=== PATIENT | female | born 1935 | race Caucasian/White ===

== ENCOUNTER 2017-07-07 09:37 | Inpatient (IN) | payer MEDICARE, BC ==
[~2017-07-07] VITALS: Ht 157.5 cm; Wt 74.8 kg
--- NOTE | 2017-07-07 09:50 | NUR ---
PT BIB FAMILY MEMBER FRO ABD PAIN WITH N/V/D X 1 WEEK. VSS. SEEN BY MD FOR EVAL. SAFETY AND COMFORT MEASURES PROVIDED. WILL MONITOR.
[2017-07-07] MEDS ORDERED: MORPHINE SULFATE INJ 2 MG/ML DISP.SYRIN ONE (09:51)
[2017-07-07] MEDS ORDERED: ONDANSETRON HCL/PF 4 MG/2 ML VIAL ONE (09:51)
[2017-07-07 10:00] LABS: BASOPHILS % (AUTO) 0.4 % (0.0-2.0); EOSINOPHILS # (AUTO) 0.9 /CMM (0.0-0.7); EOSINOPHILS % (AUTO) 8.7 % (0.0-6.0); HEMATOCRIT 47 % (33-45); HEMOGLOBIN 15.1 g/dL (11.5-14.8); LYMPHOCYTES # (AUTO) 2.5 /CMM (0.8-4.8); LYMPHOCYTES % (AUTO) 24.4 % (20.0-44.0); MEAN CORPUSCULAR HEMOGLOBIN 30 PG (26.0-33.0); MEAN CORPUSCULAR HGB CONC 33 g/dl (31.0-36.0); MEAN CORPUSCULAR VOLUME 93 fL (82-100); MONOCYTES # (AUTO) 0.5 /CMM (0.1-1.30); MONOCYTES % (AUTO) 5.3 % (2.0-12.0); NEUTROPHILS # (AUTO) 6.3 /CMM (1.8-8.9); NEUTROPHILS % (AUTO) 61.2 % (43.0-81.0); PLATELET COUNT (AUTO) 276 /CMM (150-450); RED BLOOD CELL COUNT(AUTO) 5.01 MIL/uL (4.0-5.2); WHITE BLOOD COUNT (AUTO) 10.2 K/uL (4.3-11.0)
[2017-07-07] MEDS ORDERED: IV NS 0.9% 500 ML BAG IV ONE (10:00)
[2017-07-07] MEDS ORDERED: ONDANSETRON HCL/PF 4 MG/2 ML VIAL IVP ONE (10:00)
[2017-07-07] MEDS ORDERED: MORPHINE SULFATE INJ 2 MG/ML DISP.SYRIN IV ONE (10:00)
--- NOTE | 2017-07-07 10:00 | NUR ---
IV ACCESS STARTED. BLOOD DRAWN FOR LABS. PT MEDICATED ORDERED.
--- NOTE | 2017-07-07 10:07 | NUR ---
PT TAKEN TO CT.
[2017-07-07 10:11] LABS: CALCIUM, SERUM 9.2 mg/dL (8.5-10.1); CARBON DIOXIDE 29 mmol/L (21-32); CHLORIDE 103 mmol/L (98-107); CREATININE 1.1 mg/dL (0.6-1.3); GLUCOSE 131 mg/dL (74-106); POTASSIUM 4.4 mmol/L (3.5-5.1); SODIUM SERUM 139 mmol/L (136-145); UREA NITROGEN, BLOOD 26 mg/dL (7-18)
[2017-07-07 10:23] LABS: ALANINE AMINOTRANSFERASE 24 U/L (12-78); ALBUMIN 4.3 g/dL (3.4-5.0); ALKALINE PHOSPHATASE 82 U/L (46-116); ASPARTATE AMINOTRANSFERASE 19 U/L (15-37); BILIRUBIN,DIRECT 0.1 mg/dL (0.0-0.2); BILIRUBIN,TOTAL 0.3 mg/dL (0.2-1.0); LIPASE 186 U/L (73-393); TOTAL PROTEIN, SERUM 7.6 g/dL (6.4-8.2)
[2017-07-07 10:37] LABS: APPEARANCE,URINE Slightly Cloudy (CLEAR); BILIRUBIN,URINE Negative (NEGATIVE); BLOOD, URINE Negative Ery/uL (NEGATIVE); COLOR,URINE Yellow (YELLOW); KETONES,URINE Negative (NEGATIVE); LEUKOCYTE ESTERASE ,URINE Small (NEGATIVE); NITRITE, URINE Positive (NEGATIVE); PROTEIN,URINE Trace mg/dl (NEGATIVE); UGLUCOSE Negative (NEGATIVE); UROBILINOGEN,URINE 0.2 EU/dL (0.2)
[2017-07-07 10:44] LABS: BACTERIA,URINE Moderate /HPF (None Seen); RBC,URINE 0-3 /HPF (0-2); SQUAMOUS EPITHELIAL CELL,UR Few /HPF (None Seen); WBC,URINE 80-100 /HPF (0-3)
--- NOTE | 2017-07-07 11:03 | NUR ---
PAGED DR. BARRIENTOS FOR ADMISSION
[2017-07-07] MEDS ORDERED: METF500T4 PO (11:21)
[2017-07-07] MEDS ORDERED: LORA1TAB82 PO (11:21)
[2017-07-07] MEDS ORDERED: SIMV40TA5 PO (11:21)
[2017-07-07] MEDS ORDERED: DONE5TAB34 PO (11:21)
[2017-07-07] MEDS ORDERED: BENA20TA2 PO (11:21)
[2017-07-07] MEDS ORDERED: PANT40TA2 PO (11:21)
[2017-07-07] MEDS ORDERED: OXCA150T5 PO (11:21)
[2017-07-07] MEDS ORDERED: FLUO20CA36 PO (11:21)
[2017-07-07] MEDS ORDERED: Z GUARD REMEDY 2 OZ OINT TP PRN (11:30)
[2017-07-07] MEDS ORDERED: ZOLPIDEM TARTRATE 5 MG TABLET PO PRN (11:30)
[2017-07-07] MEDS ORDERED: ACETAMINOPHEN 325 MG TABLET PO PRN (11:30)
[2017-07-07] MEDS ORDERED: FLAGYL/NS RTU 500 MG/100 ML PIGGYBACK IV ONE (11:30)
[2017-07-07] MEDS ORDERED: HYDROCODONE/APAP 5/325MG 1 EACH TABLET PO PRN (11:30)
[2017-07-07] MEDS ORDERED: PIPERACILLIN /TAZOBACTAM 3.375 G in IV D5W 50 ML IV ONE (11:30)
[2017-07-07] MEDS ORDERED: PANTOPRAZOLE 40 MG VIAL IV SCH (11:30)
[2017-07-07] MEDS ORDERED: METRONIDAZOLE 500MG/ NS 100ML 100 ML IV ONE (11:32)
--- NOTE | 2017-07-07 11:55 | NUR ---
REPORT GIVEN TO KAY BONNER FOR MS ROOM 308
[2017-07-07 12:15] VITALS: BP 113/78
--- NOTE | 2017-07-07 12:15 | NUR ---
RN MS NOTES PATIENT ARRIVED ON A GURNEY, ABLE TO AMBULATE TO THE BED. PATIENT A/O X3, VERBALLY RESPONSIVE. NO APPARENT DISTRESS NOTED, DENIES SOB, DENIES PAIN. VITAL SIGNS STABLE, SKIN CLEAR AND INTACT. IV LINE ON RAC PATENT, ALL NEEDS MET, CALL LIGHT WITHIN REACH. PATIENT ORIENTED TO ROOM AND UNIT.
[2017-07-07] MEDS: IV D5/0.45 NACL 1,000 ML IV PRN (12:44)
[2017-07-07] MEDS ORDERED: PIPERACILLIN /TAZOBACTAM 4.5 G in IV D5W 50 ML IV SCH (13:00)
[2017-07-07] MEDS: FAMOTIDINE/PF INJ 20 MG/2 ML VIAL IV SCH ×2 (13:14→21:26)
[2017-07-07] MEDS: PIPERACILLIN /TAZOBACTAM 2.25 G in IV D5W 50 ML IV SCH ×2 (13:14→17:35)
--- NOTE | 2017-07-07 14:00 | NUR ---
RN MS NOTES RECEIVED NEW VERBAL ORDERS FROM DR BARRIENTOS. ALL ORDERS NOTED AND CARRIED OUT.
[2017-07-07] MEDS: MORPHINE SULFATE INJ 2 MG/ML DISP.SYRIN IV PRN (18:52)
--- NOTE | 2017-07-07 19:12 | NUR ---
RN MS CLOSING NOTES PATIENT IN BED,VERBALLY RESPONSIVE. NO APPARENT DISTRESS NOTED, DENIES PAIN, DENIES SOB. ALL DUE MEDS GIVEN, ALL NEEDS MET. WILL ENDORSE CARE TO PM SHIFT.
--- NOTE | 2017-07-07 19:30 | NUR ---
MS RN INITIAL NOTE RECEIVED PT AWAKE AND ALERT, ORIENTED X3, MORPHINE 1MG GIVEN AT 1852, PT REPORT THAT IT WAS EFFECTIVE, WHEN ASSESSING O2 SATS OXYGEN LEVEL WAS 89% ROOM AIR, PT PLACED ON 2LNC PER MD ORDER, O2 SATS ARE NOW 96%, PT IS CLEAN/DRY AND COMFORTABLE, COOPERATIVE WITH CARE, SAFETY MEASURES WILL BE IN PLACE AT ALL TIMES, NEEDS WILL BE ANTICIPATED AND ATTENDED TO PROMPTLY.
[2017-07-07 20:00] VITALS: BP 136/80
[2017-07-07 20:14] VITALS: BP 136/80
[2017-07-08] MEDS: MORPHINE SULFATE INJ 2 MG/ML DISP.SYRIN IV PRN ×3 (00:16→18:42)
[2017-07-08] MEDS: PIPERACILLIN /TAZOBACTAM 2.25 G in IV D5W 50 ML IV SCH ×5 (00:16→23:58)
[2017-07-08 06:37] LABS: BASOPHILS % (AUTO) 0.3 % (0.0-2.0); EOSINOPHILS # (AUTO) 0.4 /CMM (0.0-0.7); EOSINOPHILS % (AUTO) 4.2 % (0.0-6.0); HEMATOCRIT 42 % (33-45); LYMPHOCYTES # (AUTO) 1.8 /CMM (0.8-4.8); MEAN CORPUSCULAR HEMOGLOBIN 31 PG (26.0-33.0); MEAN CORPUSCULAR HGB CONC 33 g/dl (31.0-36.0); MEAN CORPUSCULAR VOLUME 94 fL (82-100); MONOCYTES # (AUTO) 0.3 /CMM (0.1-1.30); MONOCYTES % (AUTO) 3.5 % (2.0-12.0); PLATELET COUNT (AUTO) 250 /CMM (150-450); RDW COEFFICIENT OF VARIATION 14.4 (11.5-15.0); RED BLOOD CELL COUNT(AUTO) 4.52 MIL/uL (4.0-5.2); WHITE BLOOD COUNT (AUTO) 9.6 K/uL (4.3-11.0)
[2017-07-08 06:47] LABS: CHOLESTEROL 206 mg/dL (<200); HDL CHOLESTEROL 53 mg/dL (40-60); LDL 120 mg/dL (0-99); TRIGLYCERIDES 166 mg/dL (30-150)
[2017-07-08 06:52] LABS: ALANINE AMINOTRANSFERASE 26 U/L (12-78); ALBUMIN 3.8 g/dL (3.4-5.0); ALKALINE PHOSPHATASE 71 U/L (46-116); ASPARTATE AMINOTRANSFERASE 17 U/L (15-37); BILIRUBIN,TOTAL 0.3 mg/dL (0.2-1.0); CALCIUM, SERUM 8.4 mg/dL (8.5-10.1); CARBON DIOXIDE 30 mmol/L (21-32); CHLORIDE 105 mmol/L (98-107); CREATININE 0.9 mg/dL (0.6-1.3); GLUCOSE 149 mg/dL (74-106); PHOSPHORUS 3.8 mg/dL (2.5-4.9); POTASSIUM 4.1 mmol/L (3.5-5.1); SODIUM SERUM 140 mmol/L (136-145); TOTAL PROTEIN, SERUM 7.2 g/dL (6.4-8.2); UREA NITROGEN, BLOOD 18 mg/dL (7-18)
--- NOTE | 2017-07-08 07:41 | NUR ---
RN MS NOTES RECEIVED PATIENT IN BED, VERBALLY RESPONSIVE, IN NO APPARENT DISTRESS. PATIENT DENIES PAIN, DENIES SOB, ON 2L O2 VIA NC. RAC IV LINE PATENT, INFUSING D51/2 NS AT 75 ML/HR. ALL NEEDS MET, CALL LIGHT WITHIN REACH.
[2017-07-08 08:00] VITALS: BP 129/75
[2017-07-08] MEDS: IV D5/0.45 NACL 1,000 ML IV PRN (08:19)
[2017-07-08] MEDS: FAMOTIDINE/PF INJ 20 MG/2 ML VIAL IV SCH ×2 (08:19→21:05)
[2017-07-08] MEDS: ONDANSETRON HCL/PF 4 MG/2 ML VIAL IVP PRN ×2 (08:56→18:43)
--- NOTE | 2017-07-08 09:00 | NUR ---
HA MS NOTES PATIENT SEEN AND EXAMINED BY DR BARRIENTOS WITH NEW ORDERS FOR PSYCH CONSULT. ALL ORDERS NOTED AND CARRIED OUT.
--- NOTE | 2017-07-08 10:00 | NUR ---
FAXED PATIENTS' FACE SHEET TO [facility] FOR PSYCH CONSULT.
--- NOTE | 2017-07-08 12:43 | NUR ---
RN MS NOTES DR MONREAL AWARE ON PSYCH CONSULT.WILL SEE PATIENT TOMORROW.
[2017-07-08 16:08] VITALS: BP 129/71
--- NOTE | 2017-07-08 19:06 | NUR ---
RN MS CLOSING NOTES PATIENT IN BED, VERBALLY RESPONSIVE, NO APPARENT DISTRESS NOTED. PATIENT ARUN SOB DENIES PAIN AT THIS TIME. ALL DUE MEDS GIVEN, ALL NEEDS MET. IV LINE ON RAC PATENT, FLUIDS RUNNING. WILL ENDORSE ARE TO PM SHIFT.
--- NOTE | 2017-07-08 19:15 | NUR ---
RN NOTES RECEIVED PT AWAKE, NO SOB, NOT IN DISTRESS, ON 2LPM O2 VIA NC AND TOLERATED WELL. PT ALERT AND ORIENTED X3, DENIES PAIN, NAUSEA AND VOMITING AT THIS TIME. IV ACCESS ON RIGHT AC PATENT AND INTACT WITH ONGOING IVF INFUSING WELL. ASSISTED TO THE BATHROOM, NOTED WITH STEADY GAIT. KEPT COMFORTABLE AND ATTENDED. SAFETY MEASURES IN PLACED. WILL CONTINUE TO MONITOR PT.
[2017-07-08 20:09] VITALS: BP 115/53
[2017-07-08 22:00] VITALS: BP 115/53
[2017-07-09] MEDS: MORPHINE SULFATE INJ 2 MG/ML DISP.SYRIN IV PRN (00:08)
[2017-07-09] MEDS: ONDANSETRON HCL/PF 4 MG/2 ML VIAL IVP PRN (00:10)
--- NOTE | 2017-07-09 00:10 | NUR ---
RN NOTES PT COMPLAINS OF ABDOMINAL PAIN 8/10 AND FEELS NAUSEATED, MORPHINE 1MG AND ZOFRAN 4 MG GIVEN IV. WILL CONTINUE TO MONITOR PT.
[2017-07-09] MEDS: PIPERACILLIN /TAZOBACTAM 2.25 G in IV D5W 50 ML IV SCH ×4 (05:35→23:59)
[2017-07-09] MEDS: IV D5/0.45 NACL 1,000 ML IV PRN (05:38)
--- NOTE | 2017-07-09 07:37 | NUR ---
RN NOTES PT ASLEEP, BREATHING REGULAR AND UNLABORED, NO SOB, NOT IN DISTRESS ON 2LPM O2 VIA NC AND TOLERATED WELL. VITAL SIGNS STABLE, AFEBRILE. NO EPISODE OF NAUSEA AND VOMITING. KEPT PAIN AT TOLERABLE LEVEL. ALL NEEDS ATTENDED. NO SIGNIFICANT CHANGE IN PT CONDITION NOTED. ENDORSED TO MORNING RN FOR CONTINUITY OF CARE.
--- NOTE | 2017-07-09 07:45 | NUR ---
RN MS NOTES PT IN BED, ASLEEP, EASILY AROUSABLE BY VERBAL STIMULI, DENIES PAIN OR ANY DISCOMFORT, IV FLUIDS INFUSING WELL, CALL LIGHT WITHIN REACH, ASSISTED WITH MEALS, NEEDS ATTENDED.
[2017-07-09 08:00] VITALS: BP 121/73
[2017-07-09] MEDS: FAMOTIDINE/PF INJ 20 MG/2 ML VIAL IV SCH ×2 (09:19→21:09)
[2017-07-09] MEDS ORDERED: LEVO75TA7 PO (11:36)
--- NOTE | 2017-07-09 12:30 | NUR ---
RN MS NOTES PT IN BED, AWAKE, ALERT AND ORIENTED, NO COMPLAINT OF PAIN, NOT IN DISTRESS, PT SEEN BY DR. BARRIENTOS, PER MD HE WILL CHECK PT'S LIST OF HOME MEDS, RECEIVED ORDER TO UPGRADE PT'S DIET, NOTED AND CARRIED OUT.
[2017-07-09 16:00] VITALS: BP 134/85
--- NOTE | 2017-07-09 18:19 | NUR ---
RN MS NOTES PT IN BED, RESTING, DENIES PAIN OR ANY DISCOMFORT, TOLERATING CURRENT DIET WELL, IV FLUIDS INFUSING WELL, CALL LIGHT WITHIN REACH, ABLE TO AMBULATE ALONG THE HALLWAY WITH STEADY GAIT, ASSISTED WITH MEALS, ALL NEEDS ATTENDED.
--- NOTE | 2017-07-09 19:30 | NUR ---
MS/LINUX KERNEL DEVELOPER; RECEIVED PT IN BED AWAKE, ALERT AND ORIENTED X 3. PT SAID SHE IS FINE. BREATHING NON LABORED. DENIES PAIN. IVF RESUMED D5 12/01 NS AT 75 ML /HOUR. BED ON LOWER POSITION AND LOCKED FOR SAFETY. UPPER PART OF BED SIDE RAILS ARE UP FOR SAFETY. PT INSTRUCTED TO CALL FOR HELP AND CALL LIGHT WITHIN REACH. WILL CONTINUE TO MONITOR.
[2017-07-09 20:00] VITALS: BP 117/65
[2017-07-10] MEDS: IV D5/0.45 NACL 1,000 ML IV PRN (04:18)
[2017-07-10] MEDS: PIPERACILLIN /TAZOBACTAM 2.25 G in IV D5W 50 ML IV SCH ×2 (05:03→13:42)
[2017-07-10] MEDS: ONDANSETRON HCL/PF 4 MG/2 ML VIAL IVP PRN (05:47)
[2017-07-10] MEDS: MORPHINE SULFATE INJ 2 MG/ML DISP.SYRIN IV PRN (05:48)
--- NOTE | 2017-07-10 06:00 | NUR ---
MS/CASHIER CHECKER; PT. C/O ABDOMINAL PAIN WITH PAIN LEVEL 10 OUT OF 10 AND ALSO NAUSEA. RN WHO IS COVERING MY IV MEDS WAS INFORMED. BP BEFORE THE PAIN MED AND NAUSEA 143/ 87 , P 63.
--- NOTE | 2017-07-10 06:25 | NUR ---
MS/DYE REEL OPERATOR HELPER; SLEPT FAIRLY . IVF ON PROGRESS. BREATHING NON LABORED AND TAM. WILL CONTINUE TO MONITOR. CALL LIGHT WITHIN REACH. WILL ENDORSE TO THE DAY NURSE.
--- NOTE | 2017-07-10 07:30 | NUR ---
RN MS NOTES PT IN BED, ASLEEP, EASILY AROUSABLE, DENIES PAIN, NOT IN DISTRESS, CALL LIGHT WITHIN REACH, PLAN OF CARE DISCUSSED WITH PT, VERBALIZED UNDERSTANDING, PT COOPERATIVE WITH CARE AND INTERVENTIONS.
[2017-07-10 08:00] VITALS: BP 133/84
[2017-07-10] MEDS: FAMOTIDINE/PF INJ 20 MG/2 ML VIAL IV SCH (10:23)
--- NOTE | 2017-07-10 10:56 | NUR ---
RN NOTES PER DR BARRIENTOS PATIENT IS MEDICALLY CLEARED, RN CALLED GEROPSYCH PERSONAL LINES SALES EXECUTIVE WILL BE SENT TO EVALUATE PATIENT.
--- NOTE | 2017-07-10 13:30 | NUR ---
RN MS NOTES PT SEEN AND EVALUATED BY CRISIS TEAM WHO DISCUSSED PT'S CASE WITH DR. MCLEOD.
--- NOTE | 2017-07-10 15:17 | NUR ---
RN MS NOTES PT SEEN BY ART OF CRISIS TEAM, DISCUSSED PT'S CASE WITH DR. MCLEOD, PER MD, PT DOES NOT MEET CRITERIA FOR 5150 AND CAN BE DISCHARGED HOME. DR. BARRIENTOS INFORMED, DISCHARGE ORDER GIVEN.
[2017-07-10 16:00] VITALS: BP 147/71
--- NOTE | 2017-07-10 16:10 | NUR ---
RN MS NOTES PT IN BED, AWAKE, ALERT AND ORIENTED, DENIES PAIN OR ANY DISCOMFORT, DISCHARGE ORDER GIVEN BY DR. BARRIENTOS, NEW PRESCRIPTION GIVEN TO PT, PER PT, SHE IS HAVING REACTIONS WITH KEFLEX, MADE AWARE AND CHANGED IT TO MACROBID, DISCHARGE AND MEDICATION INSTRUCTIONS PROVIDED TO PT, INSTRUCTED PT TO FOLLOW UP WITH HER PRIMARY PHYSICIAN AND PSYCHIATRIST, VERBALIZED UNDERSTANDING, BELONGINGS ACCOUNTED FOR, PICKED UP BY FRIEND BHARTI, LEFT IN STABLE CONDITION.
== END 2017-07-10 16:15 | disposition home or self-care (01) | DRG 392 ==
LOC: ER 09:39 → MED 11:33
PROVIDERS: ADMIT Internal Medicine; ATTEND Internal Medicine
DX: K57.32 Diverticulitis of large intestine without perforation or abscess without bleeding (principal); N39.0 Urinary tract infection, site not specified; I10 Essential (primary) hypertension; K44.9 Diaphragmatic hernia without obstruction or gangrene; E78.1 Pure hyperglyceridemia; F32.9 Major depressive disorder, single episode, unspecified; Z79.899 Other long term (current) drug therapy; Z81.8 Family history of other mental and behavioral disorders; K57.30 Diverticulosis of large intestine without perforation or abscess without bleeding
CPT/HCPCS: 36415; 72128-TC; 80048-TC; 80053-TC; 80061-TC; 80076-TC; 81000-TC; 83690-TC; 83735-TC; 84100-TC; 85025-TC; 87081-TC; 87086-TC; 87186-TC; 94799-TC; A4606; J2270; J2405; J2543; J3490; J7040; J7060; Z7610

== ENCOUNTER 2017-10-28 09:35 | Inpatient (IN) | payer MEDICARE, BC ==
[~2017-10-28] VITALS: Ht 154.9 cm; Wt 69.4 kg
[~2017-10-28 09:35] MED LIST: BENA20TA2 PO; DONE5TAB34 PO; FLUO20CA36 PO; LEVO75TA7 PO; LORA1TAB82 PO; METF500T4 PO; OXCA150T5 PO; PANT40TA2 PO; SIMV40TA5 PO
--- NOTE | 2017-10-28 09:45 | NUR ---
BIB FRIEND. C/O 09/09 PAIN H/O DIVERTICULITIS. AAO4.
[2017-10-28] MEDS ORDERED: HYDROMORPHONE INJ 2 MG/ML DISP.SYRIN IV ONE (10:00)
[2017-10-28] MEDS ORDERED: IV NS 0.9% 1,000 ML BAG IV ONE (10:00)
[2017-10-28] MEDS ORDERED: ONDANSETRON HCL/PF 4 MG/2 ML VIAL IVP ONE (10:00)
[2017-10-28] MEDS ORDERED: ONDANSETRON HCL/PF 4 MG/2 ML VIAL ONE (10:28)
[2017-10-28 10:58] LABS: CALCIUM, SERUM 9.7 mg/dL (8.5-10.1); CARBON DIOXIDE 31 mmol/L (21-32); CHLORIDE 102 mmol/L (98-107); GLUCOSE 102 mg/dL (74-106); POTASSIUM 4.6 mmol/L (3.5-5.1); SODIUM SERUM 138 mmol/L (136-145); UREA NITROGEN, BLOOD 22 mg/dL (7-18)
[2017-10-28 11:02] LABS: INR 0.89 (0.87-1.13); PROTHROMBIN TIME 9.3 SECS (9.5-12.7)
[2017-10-28 11:03] LABS: ALANINE AMINOTRANSFERASE 19 U/L (12-78); ALKALINE PHOSPHATASE 87 U/L (46-116); ASPARTATE AMINOTRANSFERASE 13 U/L (15-37); BILIRUBIN,TOTAL 0.3 mg/dL (0.2-1.0); LIPASE 235 U/L (73-393); TOTAL PROTEIN, SERUM 7.3 g/dL (6.4-8.2)
[2017-10-28] MEDS ORDERED: HYDROMORPHONE INJ 2 MG/ML DISP.SYRIN ONE (11:16)
[2017-10-28] MEDS ORDERED: IOHEXOL-300 100 ML VIAL IV ONE (11:18)
[2017-10-28] MEDS ORDERED: IV NS 0.9% 250 ML IV ONE (11:18)
[2017-10-28] MEDS ORDERED: CT SWABBABLE VALVE TRANS SET 1 EA INFUS.SET MC ONE (11:18)
[2017-10-28 12:04] LABS: HEMATOCRIT 44 % (33-45); HEMOGLOBIN 13.9 g/dL (11.5-14.8); MEAN CORPUSCULAR HEMOGLOBIN 29 PG (26.0-33.0); MEAN CORPUSCULAR VOLUME 93 fL (82-100); RED BLOOD CELL COUNT(AUTO) 4.76 MIL/uL (4.0-5.2); WHITE BLOOD COUNT (AUTO) 9.4 K/uL (4.3-11.0)
[2017-10-28 12:05] LABS: BASOPHILS % (AUTO) 0.4 % (0.0-2.0); EOSINOPHILS # (AUTO) 1.1 /CMM (0.0-0.7); EOSINOPHILS % (AUTO) 11.2 % (0.0-6.0); LYMPHOCYTES % (AUTO) 21.2 % (20.0-44.0); MEAN CORPUSCULAR HGB CONC 31 g/dl (31.0-36.0); MONOCYTES # (AUTO) 0.5 /CMM (0.1-1.30); NEUTROPHILS # (AUTO) 5.8 /CMM (1.8-8.9); NEUTROPHILS % (AUTO) 62.2 % (43.0-81.0); PLATELET COUNT (AUTO) 241 /CMM (150-450); RDW COEFFICIENT OF VARIATION 13.2 (11.5-15.0)
[2017-10-28] MEDS ORDERED: METRONIDAZOLE 500MG/ NS 100ML 100 ML IV ONE ×2 (12:30→12:38)
[2017-10-28] MEDS ORDERED: CIPROFLOXACIN IV RTU 400 MG in PREMIX 1 EA IV ONE (12:30)
[2017-10-28] MEDS ORDERED: QUET200T PO (12:34)
--- NOTE | 2017-10-28 12:34 | NUR ---
PAGED DR BOUDREAUX FOR PANEL ADMISSION
--- NOTE | 2017-10-28 12:35 | NUR ---
CALLED NURSING FIXED CAPITAL CLERK FOR M/S BED
--- NOTE | 2017-10-28 13:08 | NUR ---
M/S 309-2
--- NOTE | 2017-10-28 13:17 | NUR ---
REPAGED DR BOUDREAUX FOR PANEL ADMISSION
--- NOTE | 2017-10-28 13:25 | NUR ---
REPORT CALLED TO CORI BONNER PT TO BE TRF TO RM 309-2 MED-SURG.
[2017-10-28 14:00] VITALS: BP 111/85
[2017-10-28] MEDS ORDERED: Z GUARD REMEDY 2 OZ OINT TP PRN (14:00)
[2017-10-28] MEDS ORDERED: ZOLPIDEM TARTRATE 5 MG TABLET PO PRN (14:00)
[2017-10-28] MEDS ORDERED: ACETAMINOPHEN 325 MG TABLET PO PRN (14:00)
[2017-10-28] MEDS ORDERED: HYDROCODONE/APAP 5/325MG 1 EACH TABLET PO PRN (14:00)
[2017-10-28] MEDS ORDERED: ONDANSETRON HCL/PF 4 MG/2 ML VIAL IVP PRN (14:00)
[2017-10-28] MEDS ORDERED: MAGNESIUM HYDROXIDE 30 ML UDC PO PRN (14:00)
--- NOTE | 2017-10-28 14:00 | NUR ---
RN NOTES: PATIENT ARRIVED TO UNIT. PATIENT ALERT ORIENTED X4. NONLBAORED BREATHIHNG ON ROOM AIR. NO SIGNS OF DISTRESS NOTED. IV SITE PATENT AND INTACT. PATIENT DENIES PAIN. BED IN LOWEST LOCKED POSITION. CALL LIGHT WITHIN REACH. WILL CONTINUE TO MONITOR
[2017-10-28] MEDS ORDERED: DEXTROSE 50%-WATER 50 ML DISP.SYRIN IV PRN (14:30)
[2017-10-28] MEDS ORDERED: INSULIN REGULAR, HUMAN 100 UNIT/ML 3 ML VIAL SQ PRN (14:30)
[2017-10-28 15:00] VITALS: BP 111/88
[2017-10-28] MEDS: IV NS 0.9% 1,000 ML BAG IV SCH (15:44)
[2017-10-28 16:00] VITALS: BP_SYST 114; BP_SYST 165; BP_DIAS 105; BP_DIAS 71
[2017-10-28] MEDS: OXCARBAZEPINE 150 MG TABLET PO SCH (16:37)
[2017-10-28] MEDS: FLUOXETINE HCL 20 MG CAPSULE PO SCH (16:37)
[2017-10-28] MEDS: LORAZEPAM 1 MG TABLET PO SCH (16:37)
[2017-10-28] MEDS: BLOOD SUGAR DIAGNOSTIC 1 EACH STRIP IN SCH ×2 (17:03→22:12)
--- NOTE | 2017-10-28 19:20 | NUR ---
RN CLOSING NOTES: PATIENT ALERT ORIENTED X4. NONLBAORED BREATHIHNG ON ROOM AIR. NO SIGNS OF DISTRESS NOTED. IV SITE PATENT AND INTACT. PATIENT DENIES PAIN. BED IN LOWEST LOCKED POSITION. CALL LIGHT WITHIN REACH. PATIENT AFEBRILE, BLOOD SUGAR WITHIN NORMAL RANGE. PATIENT KEPT CLEAN AND DRY DURING SHIFT, TURNED AND REPOSITIONED EVERY 2 HOURS ENDORSED TO NEXT SHIFT
--- NOTE | 2017-10-28 19:45 | NUR ---
MS LINING MACHINE TENDER INITIAL NOTES RECEIVED PT IN BED LYING DOWN WHILE WATCHING TV AT THIS TIME WITH IVF OF NS AT 150ML/HR ON HER RIGHT FOREARM PATENT AND INTACT, NO REDNESS NOTED. RE-ORIENTED PT AND HOW TO USED THE CALL LIGHT AND ENCOURAGE HER TO USED IT IF SHE NEEDS ASSISTANCE OR NEEDS THE NURSE . KEPT HER WARM AND COMFORTABLE AT ALL TIMES. WILL CONTINUE TO MONITOR PLACE CALL LIGHT AT REACH.
[2017-10-28 20:00] VITALS: BP 116/69
[2017-10-28 20:07] VITALS: BP 116/69
[2017-10-28] MEDS ORDERED: TEMAZEPAM 7.5 MG CAPSULE ONE (22:07)
[2017-10-28] MEDS: TEMAZEPAM 7.5 MG CAPSULE PO PRN (22:12)
[2017-10-28] MEDS: DONEPEZIL 5 MG TABLET PO SCH (22:12)
[2017-10-28] MEDS: SIMVASTATIN 40 MG TABLET PO SCH (22:12)
[2017-10-29] MEDS: BLOOD SUGAR DIAGNOSTIC 1 EACH STRIP IN SCH ×4 (06:11→22:22)
[2017-10-29 06:33] LABS: BASOPHILS % (AUTO) 0.6 % (0.0-2.0); EOSINOPHILS # (AUTO) 1.3 /CMM (0.0-0.7); EOSINOPHILS % (AUTO) 14.8 % (0.0-6.0); HEMATOCRIT 42 % (33-45); HEMOGLOBIN 13.8 g/dL (11.5-14.8); LYMPHOCYTES # (AUTO) 1.8 /CMM (0.8-4.8); LYMPHOCYTES % (AUTO) 20.4 % (20.0-44.0); MEAN CORPUSCULAR HEMOGLOBIN 31 PG (26.0-33.0); MEAN CORPUSCULAR HGB CONC 33 g/dl (31.0-36.0); MEAN CORPUSCULAR VOLUME 93 fL (82-100); MONOCYTES # (AUTO) 0.5 /CMM (0.1-1.30); MONOCYTES % (AUTO) 5.4 % (2.0-12.0); NEUTROPHILS # (AUTO) 5.1 /CMM (1.8-8.9); NEUTROPHILS % (AUTO) 58.8 % (43.0-81.0); PLATELET COUNT (AUTO) 215 /CMM (150-450); RDW COEFFICIENT OF VARIATION 13.8 (11.5-15.0); RED BLOOD CELL COUNT(AUTO) 4.52 MIL/uL (4.0-5.2); WHITE BLOOD COUNT (AUTO) 8.6 K/uL (4.3-11.0)
[2017-10-29 06:44] LABS: CHOLESTEROL 171 mg/dL (<200); HDL CHOLESTEROL 46 mg/dL (40-60); LDL 89 mg/dL (0-99); TRIGLYCERIDES 179 mg/dL (30-150)
[2017-10-29 06:57] LABS: CALCIUM, SERUM 8.7 mg/dL (8.5-10.1); CARBON DIOXIDE 31 mmol/L (21-32); CHLORIDE 106 mmol/L (98-107); CREATININE 0.9 mg/dL (0.6-1.3); GLUCOSE 93 mg/dL (74-106); PHOSPHORUS 3.9 mg/dL (2.5-4.9); POTASSIUM 4.3 mmol/L (3.5-5.1); SODIUM SERUM 143 mmol/L (136-145); UREA NITROGEN, BLOOD 16 mg/dL (7-18)
--- NOTE | 2017-10-29 07:00 | NUR ---
RN NOTES: PATIENT RESTING IN BED. NO SIGNS OF DISTRESS NOTED. NONLABORED BREATHING ON ROOM AIR. NO SIGNS OF DISTRESS. IV SITE PATENT AND INTACT. BED IN LOWEST LOCKED POSITION. CALL LIGHT WITHIN REACH. WILL CONTINUE TO MONITOR
--- NOTE | 2017-10-29 07:19 | NUR ---
MS FRYER OPERATOR CLOSING NOTES PT BACK TO REST AFTER SHE USED THE RESTROOM. SLEPT WELL AFTER SLEEP MEDICATION GIVEN. STABLE ERIKA THE NIGHT . STILL ON IVF . KEPT HER WARM AND COMFORTABLE AT ALL TIMES. SAFETY PRECAUTION APPLIED AND PLACE CALL LIGHT AT REACH. ENDORSE TO AM NURSE FOR CONTINUITY OF CARE.
[2017-10-29] MEDS: PANTOPRAZOLE 40 MG TABLET.DR PO SCH (07:30)
[2017-10-29 08:00] VITALS: BP 124/60
[2017-10-29] MEDS: FLUOXETINE HCL 20 MG CAPSULE PO SCH ×2 (09:00→16:26)
[2017-10-29] MEDS: METFORMIN 500 MG TABLET PO SCH (09:00)
[2017-10-29] MEDS: OXCARBAZEPINE 150 MG TABLET PO SCH ×2 (09:00→16:26)
[2017-10-29] MEDS: LEVOTHYROXINE SODIUM 75 MCG TABLET PO SCH (09:00)
[2017-10-29] MEDS: BENAZEPRIL HCL 20 MG TABLET PO SCH (09:00)
[2017-10-29] MEDS: LORAZEPAM 1 MG TABLET PO SCH ×2 (09:00→16:26)
[2017-10-29 13:22] LABS: APPEARANCE,URINE CLEAR (CLEAR); BILIRUBIN,URINE NEGATIVE (NEGATIVE); BLOOD, URINE TRACE-INTA Ery/uL (NEGATIVE); COLOR,URINE YELLOW (YELLOW); KETONES,URINE NEGATIVE (NEGATIVE); LEUKOCYTE ESTERASE ,URINE TRACE (NEGATIVE); NITRITE, URINE NEGATIVE (NEGATIVE); PH,URINE 7.5 (5.0-8.0); PROTEIN,URINE NEGATIVE (NEGATIVE); UGLUCOSE NEGATIVE (NEGATIVE); UROBILINOGEN,URINE 0.2 EU/dL (0.2)
[2017-10-29 13:37] LABS: BACTERIA,URINE Rare /HPF (None Seen); SQUAMOUS EPITHELIAL CELL,UR 0-2 /HPF (None Seen)
[2017-10-29 16:00] VITALS: BP 115/75
--- NOTE | 2017-10-29 19:10 | NUR ---
RN CLOSING NOTES: PATIENT RESTING IN CHAIR NO SIGNS OF DISTRESS NOTED. NONLABORED BREATHING ON ROOM AIR. NO SIGNS OF DISTRESS. IV SITE PATENT AND INTACT. DURING SHIFT AT 1200, PATIENT COMPLAINED ON THROBBING PAIN IN UPPER QUADRANTS THAT, DR BOUDREAUX NOTIFIED. DR BOUDREAUX ORDERED TO HOLD ALL PO MEDICATIONS TODAY FOR BOWEL REST. HE ALSO ORDERED TO CONTINUE KEEPING THE PATIENT NPO, ICE CHIPS PERMITTED. SPO2 WAS NOTED TO BE 89%, 2 L NASAL CANNULA WAS APPLIED. DR BOUDREAUX INFORMED. PATIENT'S SPO2 WAS AT 94%. CURRENT SPO2 ON ROOM AIR IS HIGHER THAN 91% PATIENT NOT COMPLAINING OF SOB. DURING SHIFT, NO NAUSEA OR VOMITTING NOTED. PATIENT COMPLAINED OF DIZZINESS DURING SHIFT, BLOOD SUGAR WAS ASSESSED. PATIENT REFUSED 1700 BLOOD SUGAR CHECK. BENEFITS AND RISKS EXPLAINED. NO SIGNS OF DISTRESS. MD AWARE OF URINALYSIS RESULTS. NO NEW ORDERS. DURING SHIFT, PATIENT ENCOURAGED TO TURN AND REPOSITION. PATIENT KEPT CLEAN AND DRY. NO SIGNS OF DISTRESS NOTED. ENDORSED TO NEXT SHIFT
--- NOTE | 2017-10-29 19:45 | NUR ---
MS PHARMACY BENEFIT MANAGER INITIAL NOTES PT SEEN SITTING IN THE CHAIR, DENIES ANY PAIN OR ANY DISCOMFORT AT THIS TIME. STILL WITH IVF NS AT 100ML/HR ON HER RIGHT FOREARM . PT AWARE THAT SHE STILL NPO BUT REQUESTING TO HAVE SLEEP MEDICATION AT NIGHT. I SPOKE TO HER THAT I WILL CALL HER MD TO LET HIM KNOW IF SHE CAN HAVE SLEEP MEDICATION EVEN SHE'S NPO . KEPT HER WARM AND COMFORTABLE AT ALL TIMES. PLACE CALL LIGHT AT REACH. WILL CONTINUE TO MONITOR.
[2017-10-29 20:00] VITALS: BP 126/78
[2017-10-29 21:05] VITALS: BP 126/78
[2017-10-29] MEDS: TEMAZEPAM 7.5 MG CAPSULE PO PRN (22:25)
[2017-10-29] MEDS: SIMVASTATIN 40 MG TABLET PO SCH (22:25)
[2017-10-29] MEDS: DONEPEZIL 5 MG TABLET PO SCH (22:25)
--- NOTE | 2017-10-29 22:33 | NUR ---
EMPLOYEE PLACEMENT SPECIALIST/NOTES ROUTINE MEDICATION GIVEN WELL HER SLEEP MEDICATION PER PT REQUESTED AND MD ORDERED. PT DENIES ANY ABDOMINAL PAIN , NO N/V NOTED. WILL CONTINUE TO MONITOR. REFUSED TO HAVE HER BLOOD SUGAR CHECKED AND SHE STATED JUST DO IT IN AM. KEPT HER WARM AND COMFORTABLE AT ALL TIMES. PLACE CALL LIGHT AT REACH WILL CONTINUE TO MONITOR.
--- NOTE | 2017-10-30 02:06 | NUR ---
MS DISH MAKER NOTES PT SLEEPING COMFORTABLY IN BED WITHOUT ANY ACUTE DISTRESS NOTED. RESPIRATION EVEN AND NON-LABORED, KEPT HER WARM AND COMFORTABLE AT ALL TIMES. WILL CONTINUE TO MONITOR. PLACE CALL LIGHT AT REACH.
--- NOTE | 2017-10-30 03:26 | NUR ---
MS MANUEL NOTES PT WOKE UP AND COMPLAINING OF ABDOMINAL PAIN , NO N/V NOTED. NORCO TABLET GIVEN WITH SIP OF WATER. IVF STILL INFUSING. KEPT HER WARM AND COMFORTABLE AT ALL TIMES. WILL CONTINUE TO MONITOR. EDUCATE HER THE POSSIBLE SIDE EFFECT OF HER MEDICATION AND SHE UNDERSTOOD WELL. PLACE CALL LIGHT AT REACH. BED ALARM SET FOR SAFETY.
--- NOTE | 2017-10-30 07:00 | NUR ---
LINE CONSTRUCTION SUPERINTENDENT/CLOSING NOTES PT AWAKE AND CALMED BUT STABLE ERIKA THE NIGHT. SLEPT WELL AFTER SLEEP MEDS GIVEN . PAIN RELIEVED ALSO AFTER NORCO GIVEN . ALL NEEDS MET . ENDORSE TO AM NURSE.
--- NOTE | 2017-10-30 07:28 | NUR ---
MS/RN NOTES RECEIVED PATIENT RESTING IN BED, ALERT AND ORIENTED X4, IN NO APPARENT DISTRESS. PATIENT APPEARS ANGRY AND AGITATED DUE TO THE STATEMENT OF "POOR QUALITY CARE". UPON ASSESSMENT PATIENT STABLE, NO S/S OF PAIN OR DISCOMFORT NOTED. NO RESPIRATORY DISTRESS, ON ROOM AIR. IV TO RIGHT FA INFUSING NS AT 100CC/HR. NPO STATUS. PATIENT HAS BEEN NPO WITH EXCEPTION OF PAIN MEDICATION WITH A SIP OF WATER PER EXPRESS MANAGER REPORT. SAFETY MEASURES RENDERED, CALL LIGHT PLACED WITHIN EASY REACH. WILL CONTINUE TO MONITOR
[2017-10-30] MEDS: PANTOPRAZOLE 40 MG TABLET.DR PO SCH (07:30)
[2017-10-30 08:00] VITALS: BP 125/80
[2017-10-30] MEDS: LORAZEPAM 1 MG TABLET PO SCH (08:22)
[2017-10-30] MEDS: FLUOXETINE HCL 20 MG CAPSULE PO SCH (08:22)
[2017-10-30] MEDS: METFORMIN 500 MG TABLET PO SCH (08:22)
[2017-10-30] MEDS: BENAZEPRIL HCL 20 MG TABLET PO SCH (08:22)
[2017-10-30] MEDS: OXCARBAZEPINE 150 MG TABLET PO SCH (08:23)
[2017-10-30] MEDS: LEVOTHYROXINE SODIUM 75 MCG TABLET PO SCH (08:23)
[2017-10-30] MEDS: IV NS 0.9% 1,000 ML BAG IV SCH (09:00)
--- NOTE | 2017-10-30 12:05 | NUR ---
MS/RN NOTES PATIENT STARTED ON CLEAR TO ADVANCE FULL LIQUID DIET TOLERATING WELL. POSSIBLE DISCHARGE.
[2017-10-30] MEDS ORDERED: TEMA15CA5 PO ×2 (13:09→13:11)
--- NOTE | 2017-10-30 14:55 | NUR ---
MS/RN D/C NOTES DISCHARGE ORDER RECEIVED. ALL DISCHARGE FORMS PRINTED, COMPLETED SIGNED, COPIED AND PLACED IN CHART. PATIENT AGREED TO DISCHARGE INSTRUCTIONS, NEW PRESCRIPTION OF RISTORIL PROVIDED AND PLACED IN DISCHARGE FOLDER. PATIENT VERBALIZED UNDERSTANDING OF ALL INSTRUCTIONS GIVEN. IV REMOVED AND COVERED PROPERLY. ESCORTED PATIENT DOWN WHERE FRIEND PICKED UP VIA PRIVATE CAR.
== END 2017-10-30 14:00 | disposition home or self-care (01) | DRG 391 ==
LOC: ER 09:37 → MED 14:00
PROVIDERS: ADMIT Family Medicine; ATTEND Family Medicine
DX: K57.32 Diverticulitis of large intestine without perforation or abscess without bleeding (principal); N17.0 Acute kidney failure with tubular necrosis; E11.65 Type 2 diabetes mellitus with hyperglycemia; R56.9 Unspecified convulsions; E86.9 Volume depletion, unspecified; F32.9 Major depressive disorder, single episode, unspecified; I10 Essential (primary) hypertension; K21.9 Gastro-esophageal reflux disease without esophagitis; E78.5 Hyperlipidemia, unspecified; E03.9 Hypothyroidism, unspecified; Z79.82 Long term (current) use of aspirin; F41.9 Anxiety disorder, unspecified; Z79.84 Long term (current) use of oral hypoglycemic drugs; Z79.899 Other long term (current) drug therapy; N28.1 Cyst of kidney, acquired
CPT/HCPCS: 36415; 80048-TC; 80061-TC; 80076-TC; 81000-TC; 82962-TC; 83605-TC; 83690-TC; 83735-TC; 84100-TC; 85025-TC; 85730-TC; 87040-TC; 87081-TC; 87086-TC; A4216; A4606; J0744; J1170; J1815; J2405; J3490; J7030; J7050; Q9967; Z7610

== ENCOUNTER 2018-02-06 16:35 | Emergency (ER) | payer MEDICARE, BC ==
[~2018-02-06] VITALS: Ht 165.1 cm; Wt 74.8 kg
[~2018-02-06 16:35] MED LIST changes: +LORA-259 PO; -LORA1TAB82 PO; +QUET200T PO
--- NOTE | 2018-02-06 16:47 | NUR ---
L SIDED ABOMINAL PAIN X 1 MONTH . PLACED ON MONITOR. AWAITING MD ORDER
--- NOTE | 2018-02-06 17:22 | NUR ---
RAC #20 IV ACCESS. BLOOD SAMPLE COLLECTED SENT TO LAB
[2018-02-06 17:41] LABS: CARBON DIOXIDE 26 mmol/L (21-32); CHLORIDE 104 mmol/L (98-107); CREATININE 0.9 mg/dL (0.6-1.3); GLUCOSE 97 mg/dL (74-106); POTASSIUM 4.3 mmol/L (3.5-5.1); SODIUM SERUM 137 mmol/L (136-145); UREA NITROGEN, BLOOD 21 mg/dL (7-18)
[2018-02-06 17:42] LABS: BASOPHILS # (AUTO) 0.1 /CMM (0.0-0.2); BASOPHILS % (AUTO) 1.6 % (0.0-2.0); EOSINOPHILS # (AUTO) 0.8 /CMM (0.0-0.7); HEMATOCRIT 42 % (33-45); HEMOGLOBIN 14.3 g/dL (11.5-14.8); LYMPHOCYTES # (AUTO) 1.8 /CMM (0.8-4.8); LYMPHOCYTES % (AUTO) 20.7 % (20.0-44.0); MEAN CORPUSCULAR HEMOGLOBIN 31 PG (26.0-33.0); MEAN CORPUSCULAR HGB CONC 34 g/dl (31.0-36.0); MEAN CORPUSCULAR VOLUME 91 fL (82-100); MONOCYTES # (AUTO) 0.5 /CMM (0.1-1.30); MONOCYTES % (AUTO) 5.7 % (2.0-12.0); NEUTROPHILS # (AUTO) 5.7 /CMM (1.8-8.9); PLATELET COUNT (AUTO) 243 /CMM (150-450); RDW COEFFICIENT OF VARIATION 12.9 (11.5-15.0); WHITE BLOOD COUNT (AUTO) 8.9 K/uL (4.3-11.0)
[2018-02-06 17:53] LABS: ALANINE AMINOTRANSFERASE 21 U/L (12-78); ALBUMIN 3.8 g/dL (3.4-5.0); ALKALINE PHOSPHATASE 82 U/L (46-116); ASPARTATE AMINOTRANSFERASE 18 U/L (15-37); BILIRUBIN,DIRECT 0.1 mg/dL (0.0-0.2); BILIRUBIN,TOTAL 0.2 mg/dL (0.2-1.0); LIPASE 160 U/L (73-393); TOTAL PROTEIN, SERUM 7.5 g/dL (6.4-8.2)
[2018-02-06] MEDS ORDERED: HYDROCODONE/APAP 5/325MG 1 EACH TABLET ONE (18:56)
[2018-02-06] MEDS ORDERED: HYDROCODONE/APAP 5/325MG 1 EACH TABLET PO ONE (19:00)
--- NOTE | 2018-02-06 19:12 | NUR ---
GAVE REPORT TO [facility] FOR [facility]
[2018-02-06 19:45] LABS: APPEARANCE,URINE SL CLOUDY (CLEAR); BILIRUBIN,URINE NEGATIVE (NEGATIVE); BLOOD, URINE NEGATIVE Ery/uL (NEGATIVE); COLOR,URINE YELLOW (YELLOW); KETONES,URINE NEGATIVE (NEGATIVE); LEUKOCYTE ESTERASE ,URINE 2+ (NEGATIVE); NITRITE, URINE NEGATIVE (NEGATIVE); PROTEIN,URINE NEGATIVE (NEGATIVE); UGLUCOSE NEGATIVE (NEGATIVE); UROBILINOGEN,URINE 0.2 EU/dL (0.2)
[2018-02-06 20:23] LABS: BACTERIA,URINE Many /HPF (None Seen); SQUAMOUS EPITHELIAL CELL,UR Few /HPF (None Seen)
--- NOTE | 2018-02-06 20:59 | NUR ---
Patient discharged to home in stable condition. Written and verbal after care instructions given. Patient verbalizes understanding of instruction.IV removed. Catheter intact and site benign. Pressure and 4x4 applied to site. No bleeding noted. Pt ambulatory with a steady gait. VSS, NAD noted on DC.
[2018-02-06 21:01] VITALS: BP 123/75
== END 2018-02-06 21:02 | disposition home or self-care (01) ==
LOC: ER 16:37
DX: R10.32 Left lower quadrant pain (principal); I10 Essential (primary) hypertension; Z60.2 Problems related to living alone
CPT/HCPCS: 36415; 71045; 74176; 80048; 80076; 81001; 83690; 85025; 87077; 87086; 87186; 93005; 99285; A4606; 81000-TC; Z7610

== ENCOUNTER 2018-12-28 10:36 | Inpatient (IN) | payer MEDICARE, BC ==
[~2018-12-28] VITALS: Ht 154.9 cm; Wt 67.1 kg
[~2018-12-28 10:36] MED LIST changes: +ALBU18HF2 IH; +AZIT250T13 PO; -BENA20TA2 PO; +BENZ-13 PO; +ESCI20TA PO; +HYDR-4354 PO; +LEVO750T21 PO; +LINA290C PO; +METF-440 PO; -METF500T4 PO; +METH4TAB17 PO; +MONT10TA22 PO; +TEMA30CA PO
[2018-12-28] MEDS ORDERED: LORAZEPAM INJ 2 MG/ML VIAL ONE (11:14)
--- NOTE | 2018-12-28 11:15 | NUR ---
BIB FRIEND C/O SHARP ABDOMINAL PAIN X 2 WEEKS, HX DIVERTICULITIS. ABDOMEN HAS MARKED DISTENTION. PAIN IS 10/10. PT IS AOX4, AMB, VSS, RR EVEN AND UNLABORED. SKIN WARM, DRY, INTACT. DENIES SOB, DIZZINESS, WEAKNESS, N/V/D. PT HAS CHILLS, BUT NO FEVER. APPEARS ANXIOUS. READY FOR EVAL.
[2018-12-28 11:25] LABS: BASOPHILS % (AUTO) 0.4 % (0.0-2.0); EOSINOPHILS % (AUTO) 0.7 % (0.0-6.0); HEMATOCRIT 38 % (33-45); HEMOGLOBIN 12.7 g/dL (11.5-14.8); LYMPHOCYTES # (AUTO) 0.9 /CMM (0.8-4.8); LYMPHOCYTES % (AUTO) 11.6 % (20.0-44.0); MEAN CORPUSCULAR HGB CONC 33 g/dl (31.0-36.0); MEAN CORPUSCULAR VOLUME 94 fL (82-100); MONOCYTES # (AUTO) 0.4 /CMM (0.1-1.30); MONOCYTES % (AUTO) 5.3 % (2.0-12.0); PLATELET COUNT (AUTO) 260 /CMM (150-450); RED BLOOD CELL COUNT(AUTO) 4.04 MIL/uL (4.0-5.2); WHITE BLOOD COUNT (AUTO) 7.3 K/uL (4.3-11.0)
--- NOTE | 2018-12-28 11:27 | NUR ---
XRAY AT BEDSIDE
[2018-12-28] MEDS ORDERED: ONDANSETRON HCL/PF 4 MG/2 ML VIAL ONE (11:28)
[2018-12-28] MEDS ORDERED: HYDROMORPHONE INJ 0.5 MG/0.5 ML SYRINGE ONE (11:28)
[2018-12-28] MEDS ORDERED: LORAZEPAM INJ 2 MG/ML VIAL IV ONE (11:30)
[2018-12-28] MEDS ORDERED: ONDANSETRON HCL/PF 4 MG/2 ML VIAL IVP ONE (11:30)
[2018-12-28] MEDS ORDERED: HYDROMORPHONE INJ 0.5 MG/0.5 ML SYRINGE IV ONE (11:30)
[2018-12-28] MEDS ORDERED: IV NS 0.9% 500 ML BAG IV ONE (11:30)
[2018-12-28] MEDS ORDERED: MORPHINE SULFATE INJ 2 MG/ML DISP.SYRIN IV ONE (11:30)
--- NOTE | 2018-12-28 11:37 | NUR ---
PT TAKEN TO CT VIA MATT
[2018-12-28 11:39] LABS: ALANINE AMINOTRANSFERASE 22 U/L (12-78); ALBUMIN 3.8 g/dL (3.4-5.0); ALKALINE PHOSPHATASE 70 U/L (46-116); ASPARTATE AMINOTRANSFERASE 22 U/L (15-37); BILIRUBIN,DIRECT 0.1 mg/dL (0.0-0.2); BILIRUBIN,TOTAL 0.3 mg/dL (0.2-1.0); CALCIUM, SERUM 8.9 mg/dL (8.5-10.1); CARBON DIOXIDE 26 mmol/L (21-32); CHLORIDE 95 mmol/L (98-107); CREATININE 0.7 mg/dL (0.6-1.3); GLUCOSE 109 mg/dL (74-106); POTASSIUM 3.8 mmol/L (3.5-5.1); SODIUM SERUM 130 mmol/L (136-145); TOTAL PROTEIN, SERUM 6.9 g/dL (6.4-8.2); UREA NITROGEN, BLOOD 11 mg/dL (7-18)
--- NOTE | 2018-12-28 11:47 | NUR ---
PT BACK FROM CT, PLACED ON MONITOR, CONTINUE IVF
--- NOTE | 2018-12-28 11:56 | NUR ---
PROVIDED EXTRA BLANKET PER PT REQUEST
[2018-12-28] MEDS ORDERED: VITA400C68 PO (12:03)
[2018-12-28] MEDS ORDERED: HYDR-4384 PO (12:03)
[2018-12-28] MEDS ORDERED: BENA20TA9 PO (12:03)
[2018-12-28] MEDS ORDERED: TRAZ-213 PO (12:03)
[2018-12-28] MEDS ORDERED: ONDA4TAB5 PO (12:03)
[2018-12-28] MEDS ORDERED: IBUP-1490 PO (12:03)
[2018-12-28] MEDS ORDERED: QUET25TA PO (12:03)
[2018-12-28] MEDS ORDERED: ACID1TAB12 PO (12:03)
--- NOTE | 2018-12-28 12:32 | NUR ---
GOT BED 203-1 MS
--- NOTE | 2018-12-28 12:43 | NUR ---
ASSISTED PT TO BATHROOM
--- NOTE | 2018-12-28 13:16 | NUR ---
CALLED ART [phone]
--- NOTE | 2018-12-28 13:17 | NUR ---
[facility] NUMBER [phone]
--- NOTE | 2018-12-28 14:12 | NUR ---
Patient is resting comfortably in bed with eyes closed. Easily aroused. VSS
--- NOTE | 2018-12-28 14:32 | NUR ---
ART AT BEDSIDE FOR PSYCH EVAL
--- NOTE | 2018-12-28 16:25 | NUR ---
Patient is resting comfortably in bed with eyes closed. Easily aroused. VSS
--- NOTE | 2018-12-28 16:35 | NUR ---
PT AGITATED, CONTINUOUSLY OUT OF BED AND YELLING AT STAFF. PROVIDED SANDWICH PER REQUEST. OK PER
--- NOTE | 2018-12-28 17:37 | NUR ---
REPORT GIVEN TO HA COHEN FOR [facility]
--- NOTE | 2018-12-28 17:38 | NUR ---
PT TRANSFERRED VIA [facility]
--- NOTE | 2018-12-28 19:00 | NUR ---
GPS CLAY MINE CUTTING MACHINE OPERATOR NOTES: ADMITTED AN 83YO FEMALE FROM EMERGENCY DEPARTMENT. PATIENT WAS OFFICIALLY IN THE UNIT DURING DAY SHIFT TIME. PATIENT ON VOLUNTARY HOLD. PATIENT IS FEELING THE IMPENDING DOOM, AND DEPRESSED THUS ADMITTED HERE AT THE GPS UNIT. UPON FACE TO FACE EVALUATION PATIENT PRESENTS ALERT AND ORIENTEDX3, AMBULATORY, ABLE TO MAKE HER NEEDS KNOWN, CAN BE DEMANDING AND INTRUSIVE AT TIMES. PER PATIENT SHE HAS THE ABDOMINAL PAIN SINCE AT THE ER BUT NOTHING WAS REALLY DONE FOR HER. SKIN AND BODY ASSESSMENT DONE, PATIENT REFUSED T HAVE HER FACE PICTURE TAKEN. SKIN ASSESSMENT REVEAL A SCAB ON HER RIGHT MICHELLE-REFUSED PICTURE TOO. PATIENT COMPLAINS OF GENERALIZED BODY ITCHING. CONTRABAND WAS DONE BY DAY SHIFT STAFF. ORIENTATION TO UNIT, STAFF, CARE PLAN, DOCTORS DONE. Q15 MIN CHECKS INITIATED. CARE PLAN STARTED. JAQUELINE MADE AWARE FOR MED RECON AND PATIENT'S COMPLAINS WITH ORDERS FOR BENADRYL 25MG PO Q6H PRN FOR ITCHING. PATIENT SIGNED ALL ADMISSION PAPERS. WILL CONTINUE TO MONITOR PATIENT FOR MOOD, SAFETY AND BEHAVIOR.
[2018-12-28 20:00] VITALS: BP 115/70
[2018-12-28] MEDS ORDERED: MAGNESIUM HYDROXIDE 30 ML UDC PO PRN (20:30)
[2018-12-28] MEDS ORDERED: LORAZEPAM 0.5 MG TABLET PO PRN (20:30)
[2018-12-28] MEDS ORDERED: ACETAMINOPHEN 325 MG TABLET PO PRN (20:30)
[2018-12-28] MEDS: MAG HYDROX/AL HYDROX/SIMETH 30 ML UDC PO PRN (20:41)
[2018-12-28] MEDS: diphenhydrAMINE HCL 25 MG CAPSULE PO PRN (23:00)
[2018-12-28] MEDS: TEMAZEPAM 7.5 MG CAPSULE PO PRN (23:55)
[2018-12-29 07:53] LABS: CREATININE 0.8 mg/dL (0.6-1.3)
[2018-12-29 08:00] VITALS: BP 150/71
[2018-12-29 08:14] LABS: CHOLESTEROL 193 mg/dL (<200); HDL CHOLESTEROL 76 mg/dL (40-60); LDL 101 mg/dL (0-99); TRIGLYCERIDES 100 mg/dL (30-150)
--- NOTE | 2018-12-29 09:53 | NUR ---
RN-CO: CALLED DR PALM TO INFORM HIM THAT PATIENT WANTS TO LEAVE, SUGGESTED IF A CRISIS SKIING INSTRUCTOR CAN ASSESS HER IST.
--- NOTE | 2018-12-29 10:19 | NUR ---
RN-CO: TRUONG FARFAN EMERGENCY VEHICLE TECHNICIAN TO RECONCILE HOME MEDICATIONS.
[2018-12-29] MEDS: LORAZEPAM 1 MG TABLET PO PRN ×2 (10:20→17:48)
--- NOTE | 2018-12-29 10:20 | NUR ---
RN NOTE :MEDICATED WITH ATIVAN 1MG PO FOR AGITATION WITH CONTINUE TO MONITOR .
[2018-12-29] MEDS: VITAMIN E 400 UNIT CAPSULE PO SCH ×2 (11:00→17:48)
[2018-12-29] MEDS ORDERED: ONDANSETRON 4 MG TAB.RAPDIS PO PRN (11:00)
--- NOTE | 2018-12-29 13:27 | NUR ---
PAULINA called Harsha ([phone]), the pt's friend, and left a voicemail asking for a call back to discuss the pt's initial treatment and discharge plan.
[2018-12-29] MEDS ORDERED: ALBUTEROL FS 2.5 MG/3 ML VIAL.NEB NEB PRN (13:30)
--- NOTE | 2018-12-29 14:35 | NUR ---
PAULINA met with Harsha ([phone]), the pt's friend, in the room with the pt when he was visiting and it was discussed that the pt would be safe to return home but may need some support to ensure that she does not get hospitalized once again.
[2018-12-29] MEDS: DULOXETINE HCL 30 MG CAPSULE.DR PO SCH (15:30)
[2018-12-29 16:00] VITALS: BP 145/67
--- NOTE | 2018-12-29 17:02 | NUR ---
RN-CO: Patient was seen and examined by Katarina Millan NP.
[2018-12-29] MEDS: QUETIAPINE FUMARATE 25 MG TABLET PO SCH (17:49)
[2018-12-29] MEDS: OXCARBAZEPINE 150 MG TABLET PO SCH (17:49)
[2018-12-29 20:53] VITALS: BP 120/52
[2018-12-29] MEDS: DONEPEZIL 5 MG TABLET PO SCH (21:12)
[2018-12-29] MEDS: TRAZODONE 50 MG TABLET PO SCH (21:13)
[2018-12-29] MEDS: SIMVASTATIN 40 MG TABLET PO SCH (21:13)
[2018-12-30] MEDS: TEMAZEPAM 7.5 MG CAPSULE PO PRN ×2 (00:14→22:48)
[2018-12-30] MEDS: LORAZEPAM 1 MG TABLET PO PRN ×2 (02:23→18:45)
[2018-12-30] MEDS: MAG HYDROX/AL HYDROX/SIMETH 30 ML UDC PO PRN (02:23)
[2018-12-30] MEDS: LEVOTHYROXINE SODIUM 75 MCG TABLET PO SCH (06:53)
[2018-12-30 08:00] VITALS: BP 122/61
[2018-12-30] MEDS: DULOXETINE HCL 30 MG CAPSULE.DR PO SCH (08:33)
[2018-12-30] MEDS: OXCARBAZEPINE 150 MG TABLET PO SCH ×2 (08:33→16:18)
[2018-12-30] MEDS: PANTOPRAZOLE 40 MG TABLET.DR PO SCH (08:33)
[2018-12-30] MEDS: QUETIAPINE FUMARATE 25 MG TABLET PO SCH ×2 (08:33→16:18)
[2018-12-30] MEDS: METFORMIN 500 MG TABLET PO SCH (08:39)
[2018-12-30] MEDS: ACIDOPHILUS/BULGARICUS 1 EACH TAB.CHEW PO SCH (08:39)
[2018-12-30] MEDS: BENAZEPRIL HCL 20 MG TABLET PO SCH (08:39)
--- NOTE | 2018-12-30 11:20 | NUR ---
Initial Discharge Plan: Pt currently lives alone in an apartment located at [address] [place] [address], [facility] [address], [place] [address]; ([phone]). Per pt, she would like to return to her home. PAULINA will work with the pt and the MD regarding appropriate discharge planning. SW will form a safe and proper discharge for the pt.
--- NOTE | 2018-12-30 15:37 | NUR ---
Group note: Pt attended a group session on 12/30/18 at 11AM discussing the topic of what gives them meaning in their lives and what they are looking forward to once they get discharged from the hospital. S: Pt stated that being healthy in life is the only thing that provides meaning because that way you can do things that you want and be surrounded by the people that you want as well. I do not want to be depressed anymore because it makes me stop taking care of myself. O: Pt was present during the group session and was cooperative. Pt appeared to be in a depressed mood and presented with a calm affect. Pt appeared to be comfortable and spoke openly about her life. A: Pt understood that she is in this situation because she was not appropriately taking care of herself and must tend to that after she discharges from the hospital so that she does not return. P: Pt will continue milieu treatment and medication stabilization.
[2018-12-30 16:00] VITALS: BP 139/73
--- NOTE | 2018-12-30 18:46 | NUR ---
NURSING NOTE: PT STATING SHE HAS INCREASED ANXIETY, PACING UP AND DOWN THE HALLWAY, REQUESTING ATIVAN, ADMINISTERED ATIVAN 1MG PO PER MD ORDER. WILL CONTINUE TO MONITOR FOR SAFETY.
[2018-12-30 19:58] VITALS: BP 136/57
[2018-12-30] MEDS: SIMVASTATIN 40 MG TABLET PO SCH (21:31)
[2018-12-30] MEDS: DONEPEZIL 5 MG TABLET PO SCH (21:31)
[2018-12-30] MEDS: TRAZODONE 50 MG TABLET PO SCH (21:31)
[2018-12-31] MEDS: LORAZEPAM 1 MG TABLET PO PRN ×2 (02:45→10:23)
[2018-12-31] MEDS: MAG HYDROX/AL HYDROX/SIMETH 30 ML UDC PO PRN ×2 (03:09→18:17)
[2018-12-31 08:00] VITALS: BP 132/67
[2018-12-31] MEDS: OXCARBAZEPINE 150 MG TABLET PO SCH ×2 (08:18→16:41)
[2018-12-31] MEDS: LEVOTHYROXINE SODIUM 75 MCG TABLET PO SCH (08:18)
[2018-12-31] MEDS: ACIDOPHILUS/BULGARICUS 1 EACH TAB.CHEW PO SCH (08:18)
[2018-12-31] MEDS: METFORMIN 500 MG TABLET PO SCH (08:18)
[2018-12-31] MEDS: DULOXETINE HCL 30 MG CAPSULE.DR PO SCH (08:18)
[2018-12-31] MEDS: IBUPROFEN 600 MG TABLET PO PRN (08:18)
[2018-12-31] MEDS: BENAZEPRIL HCL 20 MG TABLET PO SCH (08:18)
[2018-12-31] MEDS: PANTOPRAZOLE 40 MG TABLET.DR PO SCH (08:18)
[2018-12-31] MEDS: QUETIAPINE FUMARATE 25 MG TABLET PO SCH ×2 (08:18→16:41)
[2018-12-31] MEDS: VITAMIN E 400 UNIT CAPSULE PO SCH (08:22)
--- NOTE | 2018-12-31 08:26 | NUR ---
GPS/RN-NOTES PATIENT C/O LOWER BACK PAIN AND REQUESTING FOR PAIN PILL. MOTRIN 600MG P.O GIVEN PRN ORDER.WILL CONTINUE MONITORING.
--- NOTE | 2018-12-31 09:30 | NUR ---
GPS/RN-NOTES PATIENT PARTICIPATING IN THE ACTIVITY GROUP,CALM NO C/O PAIN OR DISCOMFORT AT THIS TIME.,NO ACUTE DISTRESS NOTED.
--- NOTE | 2018-12-31 10:30 | NUR ---
GPS/RN-NOTES PATIENT STATED" I'M SO ANXIOUS I NEED SOMETHING TO CALM ME DOWN". ATIVAN 1MG P.O GIVEN PRN ORDER. WILL CONT. MONITORING FOR SAFETY AND BEHAVIOR.
--- NOTE | 2018-12-31 11:30 | NUR ---
GPS/RN-NOTES PATIENT PARTICIPATING IN THE ACTIVITY GROUP,CALM,NO ACUTE DISTRESS NOTED.
[2018-12-31 16:00] VITALS: BP 132/89
--- NOTE | 2018-12-31 18:21 | NUR ---
GPS/RN-NOTES PATIENT C/O INDIGESTION AND REQUESTING MAALOX. MAALOX 30ML GIVEN PRN ORDER.
[2018-12-31 20:00] VITALS: BP 101/52
[2018-12-31] MEDS: SIMVASTATIN 40 MG TABLET PO SCH (21:23)
[2018-12-31] MEDS: TRAZODONE 50 MG TABLET PO SCH (21:23)
[2018-12-31] MEDS: DONEPEZIL 5 MG TABLET PO SCH (21:23)
[2019-01-01] MEDS: TEMAZEPAM 7.5 MG CAPSULE PO PRN ×2 (02:31→21:24)
--- NOTE | 2019-01-01 02:33 | NUR ---
PATIENT REQUESTING FOR TEMAZEPAM, NOT GIVEN EARLIER BP WAS LOW 106/58, PULSE, 85 CURRENT BP NOW TAKEN, 129/85, PULSE 80. TEMAZEPAM 7.5 MG CAP 1 PO GIVEN PER PATIENT'S REQUEST
[2019-01-01 08:00] VITALS: BP 158/77
[2019-01-01] MEDS: PANTOPRAZOLE 40 MG TABLET.DR PO SCH (08:24)
[2019-01-01] MEDS: DULOXETINE HCL 30 MG CAPSULE.DR PO SCH ×2 (08:24→16:30)
[2019-01-01] MEDS: OXCARBAZEPINE 150 MG TABLET PO SCH ×2 (08:24→16:30)
[2019-01-01] MEDS: QUETIAPINE FUMARATE 25 MG TABLET PO SCH (08:24)
[2019-01-01] MEDS: ACIDOPHILUS/BULGARICUS 1 EACH TAB.CHEW PO SCH (08:24)
[2019-01-01] MEDS: LEVOTHYROXINE SODIUM 75 MCG TABLET PO SCH (08:24)
[2019-01-01] MEDS: METFORMIN 500 MG TABLET PO SCH (08:24)
[2019-01-01] MEDS: BENAZEPRIL HCL 20 MG TABLET PO SCH (08:25)
[2019-01-01] MEDS: VITAMIN E 400 UNIT CAPSULE PO SCH (08:26)
[2019-01-01] MEDS: IBUPROFEN 600 MG TABLET PO PRN (09:31)
--- NOTE | 2019-01-01 09:32 | NUR ---
GPS/RN-NOTES PATIENT C/O STOMACH PAIN AND REQUESTING FOR PAIN PILL. MOTRIN 600MG P.O GIVEN PRN ORDER.WILL CONTINUE MONITORING.
[2019-01-01] MEDS: LORAZEPAM 1 MG TABLET PO PRN (15:44)
--- NOTE | 2019-01-01 15:46 | NUR ---
GPS/RN-NOTES PATIENT STATED" I'M SO ANXIOUS I NEED SOMETHING TO CALM ME DOWN". ATIVAN 1MG P.O GIVEN PRN ORDER. WILL CONT. MONITORING FOR SAFETY AND BEHAVIOR.
[2019-01-01 16:00] VITALS: BP 116/68
[2019-01-01] MEDS: Z GUARD REMEDY 2 OZ OINT TP SCH (16:10)
[2019-01-01] MEDS: ARIPIPRAZOLE 5 MG TABLET PO SCH (16:30)
[2019-01-01] MEDS: MAG HYDROX/AL HYDROX/SIMETH 30 ML UDC PO PRN (18:50)
--- NOTE | 2019-01-01 18:50 | NUR ---
RNShannanCO: Patient c/o hyperacidity, Mag Al given.
[2019-01-01 20:00] VITALS: BP 134/74
[2019-01-01] MEDS: SIMVASTATIN 40 MG TABLET PO SCH (21:24)
[2019-01-01] MEDS: TRAZODONE 50 MG TABLET PO SCH (21:24)
[2019-01-01] MEDS: DONEPEZIL 5 MG TABLET PO SCH (21:24)
[2019-01-02] MEDS: diphenhydrAMINE HCL 25 MG CAPSULE PO PRN (00:12)
[2019-01-02] MEDS: LORAZEPAM 1 MG TABLET PO PRN ×2 (05:41→13:49)
[2019-01-02 08:00] VITALS: BP 132/74
[2019-01-02] MEDS: DULOXETINE HCL 30 MG CAPSULE.DR PO SCH ×2 (08:26→16:37)
[2019-01-02] MEDS: BENAZEPRIL HCL 20 MG TABLET PO SCH (08:27)
[2019-01-02] MEDS: ARIPIPRAZOLE 5 MG TABLET PO SCH (08:27)
[2019-01-02] MEDS: OXCARBAZEPINE 150 MG TABLET PO SCH ×2 (08:27→16:37)
[2019-01-02] MEDS: PANTOPRAZOLE 40 MG TABLET.DR PO SCH (08:27)
[2019-01-02] MEDS: ACIDOPHILUS/BULGARICUS 1 EACH TAB.CHEW PO SCH (08:27)
[2019-01-02] MEDS: LEVOTHYROXINE SODIUM 75 MCG TABLET PO SCH (08:28)
[2019-01-02] MEDS: METFORMIN 500 MG TABLET PO SCH (08:59)
[2019-01-02] MEDS: Z GUARD REMEDY 2 OZ OINT TP SCH ×2 (08:59→16:37)
[2019-01-02] MEDS: VITAMIN E 400 UNIT CAPSULE PO SCH (08:59)
--- NOTE | 2019-01-02 15:13 | NUR ---
RN NOTE: PATIENT IS ANXIOUS. PRN ATIVAN 1 MG PO PRN GIVEN. WILL CONTINUE MONITORING.
[2019-01-02 16:00] VITALS: BP 130/74
[2019-01-02 20:00] VITALS: BP 115/71
[2019-01-02] MEDS: TRAZODONE 50 MG TABLET PO SCH (22:05)
[2019-01-02] MEDS: SIMVASTATIN 40 MG TABLET PO SCH (22:05)
[2019-01-02] MEDS: DONEPEZIL 5 MG TABLET PO SCH (22:05)
[2019-01-02] MEDS: TEMAZEPAM 7.5 MG CAPSULE PO PRN (22:56)
[2019-01-03] MEDS: PANTOPRAZOLE 40 MG TABLET.DR PO SCH (07:30)
[2019-01-03] MEDS: LEVOTHYROXINE SODIUM 75 MCG TABLET PO SCH (07:30)
[2019-01-03 08:00] VITALS: BP 134/90
[2019-01-03] MEDS: ACIDOPHILUS/BULGARICUS 1 EACH TAB.CHEW PO SCH (09:20)
[2019-01-03] MEDS: OXCARBAZEPINE 150 MG TABLET PO SCH ×2 (09:20→16:06)
[2019-01-03] MEDS: DULOXETINE HCL 30 MG CAPSULE.DR PO SCH ×2 (09:21→16:06)
[2019-01-03] MEDS: ARIPIPRAZOLE 5 MG TABLET PO SCH (09:21)
[2019-01-03] MEDS: BENAZEPRIL HCL 20 MG TABLET PO SCH (09:22)
[2019-01-03] MEDS: VITAMIN E 400 UNIT CAPSULE PO SCH (09:22)
[2019-01-03] MEDS: METFORMIN 500 MG TABLET PO SCH (09:23)
[2019-01-03] MEDS: Z GUARD REMEDY 2 OZ OINT TP SCH ×2 (09:26→16:43)
[2019-01-03] MEDS: LORAZEPAM 1 MG TABLET PO PRN (11:39)
--- NOTE | 2019-01-03 11:40 | NUR ---
RN NOTE:PATIENT MEDICATED WITH ATIVAN 1MG FOR ANXIETY WILL CONTINUE TO MONITOR .
[2019-01-03 16:00] VITALS: BP 111/69
[2019-01-03 20:00] VITALS: BP 128/75
[2019-01-03] MEDS: MAG HYDROX/AL HYDROX/SIMETH 30 ML UDC PO PRN (20:17)
[2019-01-03] MEDS: TRAZODONE 50 MG TABLET PO SCH (21:21)
[2019-01-03] MEDS: DONEPEZIL 5 MG TABLET PO SCH (21:22)
[2019-01-03] MEDS: SIMVASTATIN 40 MG TABLET PO SCH (21:22)
[2019-01-03] MEDS: diphenhydrAMINE HCL 25 MG CAPSULE PO PRN (22:14)
[2019-01-04] MEDS: TEMAZEPAM 7.5 MG CAPSULE PO PRN ×2 (02:26→23:31)
[2019-01-04 08:00] VITALS: BP 134/80
[2019-01-04] MEDS: DULOXETINE HCL 30 MG CAPSULE.DR PO SCH ×2 (08:27→16:50)
[2019-01-04] MEDS: ARIPIPRAZOLE 5 MG TABLET PO SCH (08:27)
[2019-01-04] MEDS: ACIDOPHILUS/BULGARICUS 1 EACH TAB.CHEW PO SCH (08:28)
[2019-01-04] MEDS: METFORMIN 500 MG TABLET PO SCH (08:28)
[2019-01-04] MEDS: LEVOTHYROXINE SODIUM 75 MCG TABLET PO SCH (08:28)
[2019-01-04] MEDS: BENAZEPRIL HCL 20 MG TABLET PO SCH (08:28)
[2019-01-04] MEDS: PANTOPRAZOLE 40 MG TABLET.DR PO SCH (08:28)
[2019-01-04] MEDS: OXCARBAZEPINE 150 MG TABLET PO SCH ×2 (08:28→16:50)
[2019-01-04] MEDS: VITAMIN E 400 UNIT CAPSULE PO SCH (08:35)
[2019-01-04] MEDS: LORAZEPAM 1 MG TABLET PO PRN ×2 (08:35→13:18)
[2019-01-04] MEDS: Z GUARD REMEDY 2 OZ OINT TP SCH ×2 (08:55→16:50)
--- NOTE | 2019-01-04 11:11 | NUR ---
SW faxed a referral to three facilities for the pt: [facility] with attention to Saman to the fax number: [phone] [facility] with attention to Barbi/Asif to the fax number: [phone] [facility] with attention to Micaela/Hue to the fax number: [phone]
[2019-01-04 16:00] VITALS: BP 124/51
[2019-01-04 20:18] VITALS: BP 121/76
[2019-01-04] MEDS: DONEPEZIL 5 MG TABLET PO SCH (21:17)
[2019-01-04] MEDS: SIMVASTATIN 40 MG TABLET PO SCH (21:17)
[2019-01-04] MEDS: TRAZODONE 50 MG TABLET PO SCH (21:18)
[2019-01-05] MEDS: LORAZEPAM 1 MG TABLET PO PRN ×3 (05:05→19:32)
[2019-01-05 08:00] VITALS: BP 141/76
--- NOTE | 2019-01-05 08:52 | NUR ---
Barbi ([phone]) from [facility] contacted the and informed her that the pt was accepted to their facility.
--- NOTE | 2019-01-05 09:07 | NUR ---
Micaela ([phone]) from [facility] contacted the and informed her that the pt was accepted to their facility.
--- NOTE | 2019-01-05 09:09 | NUR ---
SUHAIL ([phone]), international coordinator at [facility], contacted the SW and informed her that the pt was accepted to their facility.
--- NOTE | 2019-01-05 09:10 | NUR ---
Tai ([phone]) from [facility] came to speak to the pt about her options and inform her about their facility. He stated that the pt is a good fit for their facility and he addressed all of his concerns with the pt.
[2019-01-05] MEDS: LEVOTHYROXINE SODIUM 75 MCG TABLET PO SCH (09:43)
[2019-01-05] MEDS: PANTOPRAZOLE 40 MG TABLET.DR PO SCH (09:44)
[2019-01-05] MEDS: BENAZEPRIL HCL 20 MG TABLET PO SCH (09:44)
[2019-01-05] MEDS: ACIDOPHILUS/BULGARICUS 1 EACH TAB.CHEW PO SCH (09:44)
[2019-01-05] MEDS: OXCARBAZEPINE 150 MG TABLET PO SCH ×2 (09:44→17:44)
[2019-01-05] MEDS: DULOXETINE HCL 30 MG CAPSULE.DR PO SCH ×2 (09:44→17:44)
[2019-01-05] MEDS: VITAMIN E 400 UNIT CAPSULE PO SCH (09:45)
[2019-01-05] MEDS: METFORMIN 500 MG TABLET PO SCH (10:07)
[2019-01-05] MEDS: Z GUARD REMEDY 2 OZ OINT TP SCH ×2 (10:19→17:44)
--- NOTE | 2019-01-05 10:40 | NUR ---
PAULINA called Harsha ([phone]), the pt's friend, and informed him that the pt was discharged and was taken to [facility] where she will be staying as a short term placement for further stabilization before returning to her home.
[2019-01-05] MEDS: ARIPIPRAZOLE 5 MG TABLET PO SCH (12:23)
--- NOTE | 2019-01-05 12:23 | NUR ---
abilify given at 1223 as unavailable till then-per pharmacy.
--- NOTE | 2019-01-05 15:29 | NUR ---
PAULINA spoke to the pt after her PC Hearing and informed her that she will be discharged to [facility] the following day. She stated that she approves of the discharge plan but is currently upset because she feels like false information was presented in the notes in her chart. PAULINA listened to the pt's concern and provided her with support.
[2019-01-05 16:00] VITALS: BP 137/73
--- NOTE | 2019-01-05 16:27 | NUR ---
dr. johnson in to see pt.
--- NOTE | 2019-01-05 19:33 | NUR ---
RN-NOTES PATIENT STATED, "I'M SO ANXIOUS I NEED SOMETHING TO CALM ME DOWN". ATIVAN 1MG PO GIVEN PRN ORDER. WILL CONT. MONITORING FOR SAFETY AND BEHAVIOR.
[2019-01-05 20:45] VITALS: BP 111/74
[2019-01-05] MEDS: DONEPEZIL 5 MG TABLET PO SCH (21:05)
[2019-01-05] MEDS: SIMVASTATIN 40 MG TABLET PO SCH (21:05)
[2019-01-05] MEDS: TRAZODONE 50 MG TABLET PO SCH (21:05)
[2019-01-05] MEDS: TEMAZEPAM 7.5 MG CAPSULE PO PRN (22:54)
[2019-01-05] MEDS: diphenhydrAMINE HCL 25 MG CAPSULE PO PRN (23:34)
[2019-01-06 08:00] VITALS: BP 132/65
[2019-01-06] MEDS: ARIPIPRAZOLE 5 MG TABLET PO SCH (08:10)
[2019-01-06] MEDS: METFORMIN 500 MG TABLET PO SCH (08:10)
[2019-01-06 08:11] VITALS: BP 132/65
[2019-01-06] MEDS: DULOXETINE HCL 30 MG CAPSULE.DR PO SCH (08:11)
[2019-01-06] MEDS: BENAZEPRIL HCL 20 MG TABLET PO SCH (08:11)
[2019-01-06] MEDS: PANTOPRAZOLE 40 MG TABLET.DR PO SCH (08:11)
[2019-01-06] MEDS: OXCARBAZEPINE 150 MG TABLET PO SCH (08:12)
[2019-01-06] MEDS: VITAMIN E 400 UNIT CAPSULE PO SCH (08:12)
[2019-01-06] MEDS: Z GUARD REMEDY 2 OZ OINT TP SCH (08:13)
[2019-01-06] MEDS: LEVOTHYROXINE SODIUM 75 MCG TABLET PO SCH (08:24)
[2019-01-06] MEDS: ACIDOPHILUS/BULGARICUS 1 EACH TAB.CHEW PO SCH (08:25)
[2019-01-06] MEDS: LORAZEPAM 1 MG TABLET PO PRN (09:39)
--- NOTE | 2019-01-06 09:41 | NUR ---
RN NOTE: PATIENT IS ANXIOUS. PRN ATIVAN 1 MG PO PRN GIVEN. WILL CONTINUE MONITORING.
--- NOTE | 2019-01-06 12:00 | NUR ---
GPS DISCHARGE NOTE: PT DISCHARGE TO [facility] [place] [address] [place] [address]. PT STABLE FOR DISCHARGE, DENIES SI/HI, COMPLIANT WITH MEDICATIONS AND TX, VSS, SKIN INTACT. EXIT CARE DONE PRINTED, SIGN AND GIVEN TO PT. ALL BELONGINGS RETURNED TO PT , PT A/O X3, AMBULATORY, REPORT GIVEN TO FACILITY [facility] MOROCHO.
--- NOTE | 2019-01-06 12:27 | NUR ---
Discharge Note: Pt was discharged to [facility] ([facility]) located at [address] [place] [address]; ([phone]). Pt was transported via [facility] (Trip #[id number]) at 12PM. Pts friend, Harsha ([phone]), was notified of the discharge. Upon discharge, the pt appeared to be in a euthymic mood and presented with a calm affect. She stated that she was content about not being in the hospital anymore with her psychiatrist and that she would be able to return home soon. Pt will be under the care of psychiatrist, Dr. Mercado, located at [address] [address], [place] [address], [place] [address]; and an stone operator, Dr. Hampton, located at [address] [facility], [address] [place] [address]; .
== END 2019-01-06 12:16 | DRG 885 ==
LOC: ER 10:40 → MEDSG2 12:45 → GPS 18:05
PROVIDERS: ADMIT Psychiatry & Neurology Psychiatry; ATTEND Psychiatry & Neurology Psychiatry
DX: F33.2 Major depressive disorder, recurrent severe without psychotic features (principal); R45.851 Suicidal ideations; E87.1 Hypo-osmolality and hyponatremia; K57.32 Diverticulitis of large intestine without perforation or abscess without bleeding; E03.9 Hypothyroidism, unspecified; E11.9 Type 2 diabetes mellitus without complications; E78.5 Hyperlipidemia, unspecified; I70.0 Atherosclerosis of aorta; E66.9 Obesity, unspecified; Z68.28 Body mass index [BMI] 28.0-28.9, adult; F41.9 Anxiety disorder, unspecified; K21.9 Gastro-esophageal reflux disease without esophagitis; I10 Essential (primary) hypertension; Z79.84 Long term (current) use of oral hypoglycemic drugs; Z79.899 Other long term (current) drug therapy
CPT/HCPCS: 36415; 71045-TC; 80048-TC; 80061-TC; 80076-TC; 82565-TC; 82962-TC; 84484-TC; 85025-TC; 87081-TC; J2060; J2405; J7040; Q0163

== ENCOUNTER 2022-03-11 13:04 | Emergency (ER) | payer BC ==
[~2022-03-11] VITALS: Ht 152.4 cm; Wt 59.0 kg
[~2022-03-11 13:04] MED LIST changes: +ACID1TAB12 PO; -AZIT250T13 PO; +BENA20TA9 PO; -BENZ-13 PO; -ESCI20TA PO; -FLUO20CA36 PO; -HYDR-4354 PO; +HYDR-4384 PO; +IBUP-1490 PO; -LEVO750T21 PO; -LORA-259 PO; -METH4TAB17 PO; -MONT10TA22 PO; +ONDA4TAB5 PO; -QUET200T PO; +QUET25TA PO; +SIMV-49 PO; -SIMV40TA5 PO; +TRAZ-252 PO; +VITA400C68 PO
--- NOTE | 2022-03-11 13:20 | NUR ---
Patient is 86yo female, came with cc of more depressed than usual, currently on oral anbiotic for UTI denies SI/HI. Placed in bed. Vitals checked.
--- NOTE | 2022-03-11 13:26 | NUR ---
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
[2022-03-11 13:44] LABS: BASOPHILS % (AUTO) 0.2 % (0.0-2.0); EOSINOPHILS % (AUTO) 1.2 % (0.0-6.0); HEMATOCRIT 41 % (33-45); HEMOGLOBIN 13.7 g/dL (11.5-14.8); LYMPHOCYTES # (AUTO) 1.4 K/uL (0.8-4.8); LYMPHOCYTES % (AUTO) 13.4 % (20.0-44.0); MEAN CORPUSCULAR HGB CONC 33 g/dl (31.0-36.0); MEAN CORPUSCULAR VOLUME 93 fL (82-100); MONOCYTES # (AUTO) 0.4 K/uL (0.1-1.30); MONOCYTES % (AUTO) 3.9 % (2.0-12.0); NEUTROPHILS # (AUTO) 8.8 K/uL (1.8-8.9); NEUTROPHILS % (AUTO) 81.3 % (43.0-81.0); PLATELET COUNT (AUTO) 333 K/uL (150-450); RED BLOOD CELL COUNT(AUTO) 4.45 MIL/uL (4.0-5.2); WHITE BLOOD COUNT (AUTO) 10.8 K/uL (4.3-11.0)
[2022-03-11 14:08] LABS: CALCIUM, SERUM 9.5 mg/dL (8.5-10.1); CARBON DIOXIDE 24 mmol/L (21-32); CHLORIDE 101 mmol/L (98-107); GLUCOSE 131 mg/dL (74-106); POTASSIUM 3.6 mmol/L (3.5-5.1); SODIUM SERUM 139 mmol/L (136-145); UREA NITROGEN, BLOOD 18 mg/dL (7-18)
[2022-03-11 14:17] LABS: ALANINE AMINOTRANSFERASE 19 U/L (12-78); ALBUMIN 3.9 g/dL (3.4-5.0); ALCOHOL, BLOOD < 3 mg/dL (0-0); ALKALINE PHOSPHATASE 105 U/L (46-116); ASPARTATE AMINOTRANSFERASE 16 U/L (15-37); BILIRUBIN,DIRECT 0.1 mg/dL (0.0-0.2); BILIRUBIN,TOTAL 0.2 mg/dL (0.2-1.0); TOTAL PROTEIN, SERUM 7.7 g/dL (6.4-8.2)
--- NOTE | 2022-03-11 14:46 | NUR ---
SW called Crisis Member, Art.
[2022-03-11 14:47] LABS: ACETAMINOPHEN 0 ug/ml (10-30)
--- NOTE | 2022-03-11 15:24 | NUR ---
FAXED CLINICALS TO [facility] AT [phone]
[2022-03-11] MEDS ORDERED: LORA-258 PO (16:40)
[2022-03-11] MEDS ORDERED: OLANZAPINE 5 MG TABLET PO ONE (17:00)
[2022-03-11] MEDS ORDERED: OLANZAPINE 5 MG TABLET ONE ×2 (17:04→17:38)
[2022-03-11 19:13] VITALS: BP 122/81
== END 2022-03-11 19:13 | disposition home or self-care (01) ==
LOC: ER 13:07
DX: F32.A Depression, unspecified (principal); I10 Essential (primary) hypertension; Z60.2 Problems related to living alone; Z79.899 Other long term (current) drug therapy
CPT/HCPCS: 36415; 80048-TC; 80076-TC; 85025-TC; G0480

== ENCOUNTER 2022-07-04 00:23 | Emergency (ER) | payer OTHER, BC ==
[~2022-07-04 00:23] MED LIST changes: +LORA-258 PO
--- NOTE | 2022-07-04 00:41 | NUR ---
PT WALKED OUT AWAY FROM THE CHILD AND [facility]OL[facility]CENT [facility]RI[facility] RESCUE 860 WHILE AWAITING TO BE TRIAGED. 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
== END 2022-07-04 00:45 | disposition left against medical advice (07) ==
LOC: ER 00:32
DX: Z53.21 Procedure and treatment not carried out due to patient leaving prior to being seen by health care provider (principal)